=== PATIENT | female | born 1975 | race Caucasian/White ===

== ENCOUNTER 2020-07-31 19:40 | Observation (INO) ==
--- NOTE | 2020-07-31 20:02 | DR.AMS ---
HPI Time Seen Time Seen by Provider: 07/31/20 19:55 PCP Primary Care Physician: CIRO Complaint Cheif Complaint Doctors Comments: No Hx of seizures, no trauma Chief Complaint:: PT IN ED FROM PRIVATE VEHICLE WITH C/O LEFT SIDED WEAKNESS AND AMS WHICH STARTED APPROX 1 HR AGO. WHILE IN ROUTE PT BECAME UNRESPONIVE AND SEIZING. COVID-19 Coronavirus risk:travel/contact w/high risk person: No Has patient experienced Coronavirus symptoms: No Reviewed Nurses Notes Reviewed: Yes Source History Provided: Family Member Mode of Arrival Mode of Arrival: Stretcher Timing Onset of Chief Complaint: 07/31/20 Came On: Suddenly Symptoms: Improving (after seizure) Symptom Onset: Known Onset of Symptoms Start Date: 07/31/20 Onset of Symptoms Start Time: 18:56 Duration Duration: Intermittent How lon Duration: Minutes Quality Quality: Decreased Alertness Severity Severity: Moderate Context Recent: None History Of: None Associated Signs and Symptoms Associated Signs and Symptoms: 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 PMH PMH Past Medical History: Yes Past Medical History: Anxiety and Headaches Past Surgical History: Yes Surgical History: Other Past Surgical History Comment: BREAST IMPLANTS Family History History of Family Medical Conditions: No Social History Type of Tobacco Use: VAPS Does any household member use tobacco: No Alcohol Use: DAILY Do you use any recreational Drugs:: No Lives With: Spouse Lives Where: Home Travel Risk Coronavirus risk:travel/contact w/high risk person: No Has patient experienced Coronavirus symptoms: No Infectious screening In the last 2 months have you had wt loss of >10#?: NO Have you had fever, night sweats or hemotysis?: No Have you traveled outside the country in the last 6 months?: No Isolation: Standard ROS Review of Systems Unable to Obtain Due To: Altered mental status PE Vitals Vital Signs: Temp Pulse Resp BP BP Pulse Ox 07/31/20 22:00 63 15 107/70 96 07/31/20 21:45 61 14 97 07/31/20 21:30 66 15 103/56 98 07/31/20 21:15 63 19 95 07/31/20 21:00 64 20 114/69 95 07/31/20 20:45 64 16 95 07/31/20 20:30 68 20 129/80 97 07/31/20 20:15 82 40 H 98 07/31/20 20:06 74 25 H 97 07/31/20 20:00 10 L 123/78 99 07/31/20 19:44 98.4 F 86 15 144/78 100 01/03/19 14:52 129/86 General Limitations: Altered Mental Status General Appearance: Lethargic Head Head Exam: Normal Inspection, Atraumatic and Normocephalic Head Exam Physical: negative Laceration, Abrasion, Contusion, Hematoma, Raccoon Eyes, Ayala's Sign, Tenderness of Temporal Artery, CSF Rhinorrhea, CSF Otorrhea and Other Eyes Eye exam: Normal Appearance and PERRL Pupils: Regular, Round: Bilateral ENT ENT Exam: Normal Exam and Normal Oropharynx External Ear Exam: Normal External Inspection TM/Canal Exam: Bilateral: Normal Nose Exam: Normal Nose Exam Mouth Exam: Normal Inspection; negative Drooling, Lip Swelling, Tongue Elevation and Tongue Swelling Throat Exam: Normal Inspection Neck Neck Exam: Normal Inspection, Full ROM and Trachea Midline Chest Chest Inspection: Normal Inspection Respiratory Respiratory Exam: Normal Lung Sounds Bilat; negative Respiratory Distress Respiratory Exam: Bilateral: Clear to Auscultation COURSE Treatment Treatment: Patient taken to CT for head scan. Post ictal on return. 2039: awake and talking now. 2129: patient alert and moves all extremities, Possible weakness left leg and arm. Consultation Called: 21:44 Call Returned: 21:44 Consultation Comments: case discussed with DR. Arias admit for possible MRI/ seizure work up. ROR Labs Reviewed Result Diagrams: 07/31/20 20:00 07/31/20 20:00 Laboratory: WBC 10.8 X10^3/uL (3.6-10.0) H 07/31/20 20:00 RBC 4.45 X10^6/uL (3.5-5.4) 07/31/20 20:00 Hgb 14.8 g/dL (12.0-16.0) 07/31/20 20:00 Hct 43.0 % (36.0-47.0) 07/31/20 20:00 MCV 96.6 fL (80.0-100.0) 07/31/20 20:00 MCH 33.2 pg (27.0-34.0) 07/31/20 20:00 MCHC 34.4 g/dL (33.0-35.0) 07/31/20 20:00 RDW 12.9 % (11.6-16.5) 07/31/20 20:00 Plt Count 263 X10^3/uL (150.0-450.0) 07/31/20 20:00 MPV 8.0 fL (7.4-11.0) 07/31/20 20:00 Neut % (Auto) 50.1 % (42.0-75.0) 07/31/20 20:00 Lymph % (Auto) 37.4 % (21.0-51.0) 07/31/20 20:00 [place] % (Auto) 6.8 % (0.0-13.0) 07/31/20 20:00 Eos % (Auto) 5.1 % (0.9-2.9) H 07/31/20 20:00 Baso % (Auto) 0.6 % (0.2-1.0) 07/31/20 20:00 Neut # (Auto) 5.4 x10^3/uL (2.2-4.8) H 07/31/20 20:00 Lymph # (Auto) 4.1 X10^3/uL (1.3-2.9) H 07/31/20 20:00 [place] # (Auto) 0.7 x10^3/uL (0.3-0.8) 07/31/20 20:00 Eos # (Auto) 0.6 x10^3/uL (0.0-0.2) H 07/31/20 20:00 Baso # (Auto) 0.1 X10^3/uL (0.0-0.1) 07/31/20 20:00 Absolute Nucleated RBC 0.0 /100WBC 07/31/20 20:00 Sodium 141 mmol/L (136-145) 07/31/20 20:00 Corrected Sodium TNP 07/31/20 20:00 Potassium 3.4 mmol/L (3.5-5.1) L 07/31/20 20:00 Chloride 103 mmol/L (98-107) 07/31/20 20:00 Carbon Dioxide 26.8 mmol/L (21-32) 07/31/20 20:00 BUN 6 mg/dL (7-18) L 07/31/20 20:00 Creatinine 0.95 mg/dL (0.55-1.02) 07/31/20 20:00 Est GFR (MDRD) Af Amer > 60 (>60) 07/31/20 20:00 Est GFR (MDRD) Non-Af > 60 (>60) 07/31/20 20:00 Glucose 95 mg/dL (65-99) 07/31/20 20:00 POC Glucose (mg/dL) 87 mg/dL (65-99) 07/31/20 20:01 Calcium 9.3 mg/dL (8.5-10.1) 07/31/20 20:00 Corrected Calcium TNP 07/31/20 20:00 Total Bilirubin 0.50 mg/dL (0.2-1.0) 07/31/20 20:00 AST 16 Units/L (15-37) 07/31/20 20:00 ALT 19 Units/L (12-78) 07/31/20 20:00 Alkaline Phosphatase 56 Units/L (46-116) 07/31/20 20:00 Total Protein 7.9 g/dL (6.4-8.2) 07/31/20 20:00 Albumin 4.5 g/dL (3.4-5.0) 07/31/20 20:00 Globulin 3.4 g/dL (2.5-4.5) 07/31/20 20:00 Albumin/Globulin Ratio 1.3 Ratio (1.1-2.1) 07/31/20 20:00 Specimen Type Clean catch urine 07/31/20 21:10 Urine Color Yellow (YELLOW) 07/31/20 21:10 Urine Appearance Clear (CLEAR) 07/31/20 21:10 Urine pH 6.5 (5.0 - 8.0) 07/31/20 21:10 Ur Specific Stewart 1.010 (1.000-1.030) 07/31/20 21:10 Urine Protein Negative (NEGATIVE) 07/31/20 21:10 Urine Glucose (UA) Negative (NEGATIVE) 07/31/20 21:10 Urine Ketones Negative (NEGATIVE) 07/31/20 21:10 Urine Occult Blood 3+ (NEGATIVE) 07/31/20 21:10 Urine Nitrite Negative (NEGATIVE) 07/31/20 21:10 Urine Bilirubin Negative (NEGATIVE) 07/31/20 21:10 Urine Urobilinogen Normal (NORMAL) 07/31/20 21:10 Ur Leukocyte Esterase Negative (NEGATIVE) 07/31/20 21:10 Urine RBC 0-2 /HPF (0-3) 07/31/20 21:10 Urine WBC None seen /HPF (0-5) 07/31/20 21:10 Ur Squamous Epith Cells Negative /HPF (NEGATIVE) 07/31/20 21:10 Urine Bacteria Negative /HPF (NEGATIVE) 07/31/20 21:10 Ur Culture Indicated? No/not indicated 07/31/20 21:10 Urine Opiates Screen Negative (NEG=<300) 07/31/20 21:10 Urine Methadone Screen Negative (NEG=<300) 07/31/20 21:10 Ur Barbiturates Screen Negative (NEG=<200) 07/31/20 21:10 Ur Phencyclidine Scrn Negative (NEG=<25) 07/31/20 21:10 Ur Amphetamines Screen Negative (NEG=<1000) 07/31/20 21:10 U Benzodiazepines Scrn Negative (NEG=<200) 07/31/20 21:10 Urine Cocaine Screen Negative (NEG=<300) 07/31/20 21:10 U Marijuana (THC) Screen Negative (NEG=<50) 07/31/20 21:10 Ethyl Alcohol mg/dL < 3 mg/dL (0-19.9) 07/31/20 20:00 SARS-CoV-2 (PCR) Negative (NEGATIVE) 07/31/20 21:55 XRAY XRAY Interpreted by: Radiologist X-ray Results: CT Head: suzette acute findings EKG Rate: 83 Mcclave: Normal Rhythm: NSR Block: None Hypertrophy: LAE ST: Normal Opioid Opioid Risk Tool Age (Lazaro box if 16-45): Yes History of Preadolescent Sexual Abuse: No Total: 1 Total Score Risk Category: Low Risk Copyright: [employer] predicting aberrant behaviors
--- NOTE | 2020-07-31 20:05 | CT ---
HISTORYLeft-sided weakness unresponsiveSTUDYCT brain without contrastCOMPARISONApril 2019TECHNIQUEMultiple axial images of the brain were obtained from the skull base to the vertex [without] administration of IV contrast.Dose reduction techniques including Automated Exposure Control (AEC) and adjustment of mA and kV were utlized.FINDINGS[No acute intraparenchymal hemorrhage or mass can be identified.] [No extra-axial fluid collections are seen.] [No alteration in the attenuation of the brain parenchyma can be identified to suggest acute or subacute ischemic change.] [The ventricular system is symmetric and nondilated.] [The extracranial structures are grossly unremarkable.]IMPRESSION[No acute intracranial process can be identified.]Electronically signed by: TRAN QUAN (Jul 31, 2020 20:03:31)
[2020-07-31 20:18] LABS: BASOPHILS # (AUTO) 0.1 X10^3/uL (0.0-0.1); BASOPHILS % (AUTO) 0.6 % (0.2-1.0); EOSINOPHILS # (AUTO) 0.6 x10^3/uL (0.0-0.2); EOSINOPHILS % (AUTO) 5.1 % (0.9-2.9); HEMOGLOBIN 14.8 g/dL (12.0-16.0); LYMPHOCYTES # (AUTO) 4.1 X10^3/uL (1.3-2.9); LYMPHOCYTES % (AUTO) 37.4 % (21.0-51.0); MEAN CORPUSCULAR HEMOGLOBIN 33.2 pg (27.0-34.0); MEAN CORPUSCULAR HGB CONC 34.4 g/dL (33.0-35.0); MEAN CORPUSCULAR VOLUME 96.6 fL (80.0-100.0); MONOCYTES # (AUTO) 0.7 x10^3/uL (0.3-0.8); MONOCYTES % (AUTO) 6.8 % (0.0-13.0); NEUTROPHILS # (AUTO) 5.4 x10^3/uL (2.2-4.8); NEUTROPHILS % (AUTO) 50.1 % (42.0-75.0); PLATELET COUNT 263 X10^3/uL (150.0-450.0); RED BLOOD COUNT 4.45 X10^6/uL (3.5-5.4); RED CELL DISTRIBUTION WIDTH 12.9 % (11.6-16.5); WHITE BLOOD COUNT 10.8 X10^3/uL (3.6-10.0)
[2020-07-31 20:25] LABS: ALANINE AMINOTRANSFERASE 19 Units/L (12-78); ALBUMIN 4.5 g/dL (3.4-5.0); ALKALINE PHOSPHATASE 56 Units/L (46-116); ASPARTATE AMINO TRANSFERASE 16 Units/L (15-37); BLOOD UREA NITROGEN 6 mg/dL (7-18); CALCIUM 9.3 mg/dL (8.5-10.1); CARBON DIOXIDE 26.8 mmol/L (21-32); CHLORIDE 103 mmol/L (98-107); CREATININE 0.95 mg/dL (0.55-1.02); SODIUM 141 mmol/L (136-145); TOTAL PROTEIN 7.9 g/dL (6.4-8.2); eGFR NON BLACK RACES > 60 (>60)
[2020-07-31 21:21] LABS: BILIRUBIN,URINE NEGATIVE (NEGATIVE); BLOOD/HEMOGLOBIN,URINE 3+ (NEGATIVE); GLUCOSE, URINE NEGATIVE (NEGATIVE); KETONES,URINE NEGATIVE (NEGATIVE); LEUKOCYTE ESTERASE ,URINE NEGATIVE (NEGATIVE); NITRITES,URINE NEGATIVE (NEGATIVE); PH,URINE 6.5 (5.0 - 8.0); PROTEIN,URINE NEGATIVE (NEGATIVE); UROBILINOGEN,URINE NORMAL (NORMAL)
[2020-07-31 21:32] LABS: APPEARANCE,URINE CLEAR (CLEAR); COLOR,URINE YELLOW (YELLOW); RBC,URINE 0-2 /HPF (0-3)
[2020-07-31 21:33] LABS: BACTERIA,URINE NEGATIVE /HPF (NEGATIVE); SQUAMOUS EPITHELIAL CELL,UR NEGATIVE /HPF (NEGATIVE)
[2020-07-31] MEDS ORDERED: ZOFRAN INJ 4 MG VIAL IVP ONE (22:18)
[2020-07-31] MEDS ORDERED: NS 1000 ML 1,000 ML ONE (22:28)
[2020-07-31] MEDS ORDERED: ZOFRAN INJ 4 MG VIAL ONE (22:28)
[2020-07-31] MEDS ORDERED: MOTRIN TAB 800 MG PO ONE (22:30)
[2020-07-31] MEDS: MOTRIN TAB 800 MG PO PRN (22:44)
[2020-07-31] MEDS: NS 1000 ML 1,000 ML IV SCH (22:45)
[2020-08-01 02:22] VITALS: BMI 27.8
[2020-08-01] MEDS ORDERED: POTASSIUM CHLORIDE LIQ 20 MEQ UDC PO PRN (03:26)
[2020-08-01] MEDS ORDERED: MICRO K EXTEN CAP 10 MEQ PO PRN (03:26)
[2020-08-01] MEDS ORDERED: K-RIDER 10 MEQ/NS 100 ML 10 MEQ/100 ML BAG IV PRN (03:26)
[2020-08-01] MEDS ORDERED: POTASSIUM CHL 40 MEQ/NS 0.45% 500 ML IV PRN (03:26)
[2020-08-01] MEDS ORDERED: KLOR-CON PO PRN (03:26)
[2020-08-01] MEDS ORDERED: POTASSIUM CHL 60 MEQ/NS 0.45% 500 ML IV PRN (03:26)
[2020-08-01] MEDS ORDERED: K-DUR TAB 20 MEQ PO PRN (03:26)
[2020-08-01] MEDS ORDERED: MAGNESIUM SULFATE 1 GRAM/100 mL PREMIX 1 GM/100 ML BAG IV PRN (05:00)
[2020-08-01 06:05] LABS: BASOPHILS # (AUTO) 0.1 X10^3/uL (0.0-0.1); BASOPHILS % (AUTO) 0.6 % (0.2-1.0); EOSINOPHILS # (AUTO) 0.4 x10^3/uL (0.0-0.2); HEMATOCRIT 40.4 % (36.0-47.0); LYMPHOCYTES # (AUTO) 3.6 X10^3/uL (1.3-2.9); LYMPHOCYTES % (AUTO) 40.4 % (21.0-51.0); MEAN CORPUSCULAR HEMOGLOBIN 33.3 pg (27.0-34.0); MEAN CORPUSCULAR HGB CONC 34.6 g/dL (33.0-35.0); MEAN CORPUSCULAR VOLUME 96.2 fL (80.0-100.0); MEAN PLATELET VOLUME 8.3 fL (7.4-11.0); MONOCYTES # (AUTO) 0.7 x10^3/uL (0.3-0.8); MONOCYTES % (AUTO) 7.5 % (0.0-13.0); NEUTROPHILS # (AUTO) 4.1 x10^3/uL (2.2-4.8); NEUTROPHILS % (AUTO) 46.5 % (42.0-75.0); PLATELET COUNT 252 X10^3/uL (150.0-450.0); RED CELL DISTRIBUTION WIDTH 12.8 % (11.6-16.5); WHITE BLOOD COUNT 8.8 X10^3/uL (3.6-10.0)
[2020-08-01 06:26] LABS: ALANINE AMINOTRANSFERASE 20 Units/L (12-78); ALBUMIN 3.6 g/dL (3.4-5.0); ALKALINE PHOSPHATASE 45 Units/L (46-116); ASPARTATE AMINO TRANSFERASE 14 Units/L (15-37); BLOOD UREA NITROGEN 7 mg/dL (7-18); CALCIUM 8.5 mg/dL (8.5-10.1); CARBON DIOXIDE 29.1 mmol/L (21-32); CHLORIDE 105 mmol/L (98-107); CREATININE 0.93 mg/dL (0.55-1.02); SODIUM 142 mmol/L (136-145); TOTAL PROTEIN 6.5 g/dL (6.4-8.2); eGFR NON BLACK RACES > 60 (>60)
[2020-08-01] MEDS: ZOFRAN INJ 4 MG VIAL IVP PRN ×3 (08:07→22:52)
[2020-08-01] MEDS ORDERED: SAW PALMETTO 500 MG PO SCH (09:00)
[2020-08-01] MEDS: ZOLOFT PO SCH ×2 (09:51→11:09)
[2020-08-01] MEDS: MOTRIN TAB 800 MG PO PRN (10:11)
[2020-08-01] MEDS: NS 1000 ML 1,000 ML IV SCH ×2 (11:20→21:14)
[2020-08-01] MEDS: KEPPRA TAB 500 MG PO SCH ×2 (11:20→21:14)
--- NOTE | 2020-08-01 11:59 | DR.H&P ---
H&P - History & Physical for Day of: H&P Date: 07/31/20 - Chief Complaint Chief Complaint: LEFT SIDED WEAKNESS, AMS, SEIZURE ACTIVITY, SEVERE HEADACHE, NAUSEA - History of Present Illness History of Present Illness: IS A 44 YEAR OLD PATIENT OF OURS WHO PRESENTED TO THE ER WITH REPORTS OF SEIZURE ACTIVITY. PATIENTS SPOUSE REPORTED THAT PATIENT STARTED HAVING LEFT SIDED WEAKNESS AND ALTERED MENTAL STATUS ABOUT AN HOUR PRIOR TO ARRIVAL. HE REPORTS THAT PATIENT THEN BECAME UNRESPONSIVE AND STARTED HAVING SEIZURE LIKE ACTIVITY. SEIZURE LASTED APPROXIMATELY TWO MINUTES. ON ARRIVAL TO THE ER, PATIENT IS DROWSY, BUT IS ABLE TO ANSWER QUESTIONS. SHE REPORTS HAVING SYMPTOMS OF DIZZINESS, VISUAL DISTURBANCES, BLURRED VISION, SEVERE HEADACHE, AND NAUSEA EARLIER IN THE DAY. SHE DENIES A HISTORY OF SEIZURES. ON ARRIVAL, VITALS WERE 98.4-86-15-100%-144/78. LABS WERE OBTAINED. ABNORMAL LAB VALUES INCLUDE THE FOLLOWING: WBC 10.8, POTASSIUM 3.4, BUN 6. URINALYSIS IS UNREMARKABLE. BRAIN CT WAS OBTAINED AND REVEALED: No acute intracranial process can be identified. EKG REVEALED: SINUS RHYTHM WITH HR 83. SHE WAS GIVEN ZOFRAN 4MG IV X 1 DOSE IN THE ER DUE TO NAUSEA. SHE WAS ADMITTED FOR FURTHER EVALUATION AND TREATMENT. SHE WAS STARTED ON NS AT 80 ML/HR, ZOFRAN 4MG IV Q6H PRN, FIORICET 1-2TAB PO Q6H PRN, KEPPRA 500MG PO BID, THE POTASSIUM AND MAGNESIUM PROTOCOLS, AND HER HOME MEDICATIONS OF ZOLOFT WAS RESUMED. WE WILL OBTAIN A BRAIN MRI TO RULE OUT ANEURYSM OR OTHER ABNORMALITIES. OTHERWISE, WE WILL FOLLOW UP WITH AM LABS AND CONTINUE TO MONITOR. - Past Medical History Past Medical History: Anxiety, Headaches - Past Surgical History Surgical History: Other - Family History Family Medical History: ND - Social History Type of Tobacco Use: VAPS Does any household member use tobacco: No Alcohol Use: Occasionally Drug Use: None - Medications Home Medications: Penicillins Allergy (Verified 01/03/19 12:16) CONTINUE taking the following medications saw palmetto 500 mg PO BID 07/31/20 [History] sertraline 50 mg PO DAILY 07/31/20 [History] - Review of Systems Constitutional: Weakness Eyes: See HPI, Vision Change ENT: No Symptoms Reported Respiratory: No Symptoms Reported Cardiovascular: Light Headedness Gastrointestinal: Nausea Genitourinary: No Symptoms Reported Musculoskeletal: No Symptoms Reported Skin: No Symptoms Reported Neurological: See HPI, Weakness, Seizures, Other (SEVERE HEADACHE, LOC ) - Physical Exam Vital Signs: Temperature 97.7 F Pulse Rate [Right Radial] 64 Pulse Rate 56 Respiratory Rate 20 Blood Pressure [Left Arm] 105/62 Blood Pressure [Right Arm] 130/82 Blood Pressure 117/76 O2 Sat by Pulse Oximetry 99 Oriented: Normal Eyes: Blurred Vision Ear: Normal Nose: Normal Throat: Normal Respiratory: Clear Throughout Cardiovascular: Normal : Normal Auscultation: Bowel Sounds: Normal Palpation: Normal Tenderness: Normal Skin: Normal Musculoskeletal: Normal Psychiatric: Normal Mood Description: Calm Affect: Normal Speech Pattern: Clear - Assessment/Plan (1) Seizure Status: Acute Plan: ADMIT, OBTAIN BRAIN MRI, NS AT 80 ML/HR, ZOFRAN 4MG IV Q6H PRN, FIORICET 1-2TAB PO Q6H PRN, KEPPRA 500MG PO BID, THE POTASSIUM AND MAGNESIUM PROTOCOLS, AND HER HOME MEDICATIONS OF ZOLOFT WAS RESUMED (2) Headache Qualifiers: Headache type: unspecified Headache chronicity pattern: acute headache Intractability: intractable Qualified Code(s): R51.9 - Headache, unspecified Status: Acute (3) Blurred vision Status: Acute (4) Nausea Status: Acute - Allergies Allergies/Adverse Reactions: Allergies Allergy/AdvReac Type Severity Reaction Status Date / Time Penicillins Allergy Verified 01/03/19 12:16
[2020-08-01] MEDS: FIORICET TAB PO PRN ×2 (17:24→22:51)
[2020-08-02] MEDS: NS 1000 ML 1,000 ML IV SCH ×2 (01:09→15:15)
[2020-08-02 06:38] LABS: BASOPHILS # (AUTO) 0.1 X10^3/uL (0.0-0.1); BASOPHILS % (AUTO) 0.7 % (0.2-1.0); EOSINOPHILS # (AUTO) 0.4 x10^3/uL (0.0-0.2); EOSINOPHILS % (AUTO) 5.1 % (0.9-2.9); HEMATOCRIT 37.8 % (36.0-47.0); HEMOGLOBIN 13.1 g/dL (12.0-16.0); LYMPHOCYTES % (AUTO) 40.7 % (21.0-51.0); MEAN CORPUSCULAR HEMOGLOBIN 33.6 pg (27.0-34.0); MEAN CORPUSCULAR HGB CONC 34.5 g/dL (33.0-35.0); MEAN CORPUSCULAR VOLUME 97.3 fL (80.0-100.0); MEAN PLATELET VOLUME 8.5 fL (7.4-11.0); MONOCYTES # (AUTO) 0.5 x10^3/uL (0.3-0.8); MONOCYTES % (AUTO) 7.1 % (0.0-13.0); NEUTROPHILS # (AUTO) 3.4 x10^3/uL (2.2-4.8); NEUTROPHILS % (AUTO) 46.4 % (42.0-75.0); PLATELET COUNT 209 X10^3/uL (150.0-450.0); RED BLOOD COUNT 3.88 X10^6/uL (3.5-5.4); RED CELL DISTRIBUTION WIDTH 12.7 % (11.6-16.5); WHITE BLOOD COUNT 7.3 X10^3/uL (3.6-10.0)
[2020-08-02 07:08] LABS: ALANINE AMINOTRANSFERASE 16 Units/L (12-78); ALBUMIN 3.1 g/dL (3.4-5.0); ALKALINE PHOSPHATASE 37 Units/L (46-116); ASPARTATE AMINO TRANSFERASE 11 Units/L (15-37); BLOOD UREA NITROGEN 6 mg/dL (7-18); CALCIUM 8.1 mg/dL (8.5-10.1); CARBON DIOXIDE 25.8 mmol/L (21-32); CHLORIDE 109 mmol/L (98-107); COR CA(FOR HYPOALB) 8.8 mg/dL (8.5-10.1); CREATININE 0.93 mg/dL (0.55-1.02); SODIUM 143 mmol/L (136-145); TOTAL PROTEIN 5.7 g/dL (6.4-8.2); eGFR NON BLACK RACES > 60 (>60)
[2020-08-02] MEDS: FIORICET TAB PO PRN (07:16)
[2020-08-02] MEDS: ZOFRAN INJ 4 MG VIAL IVP PRN (07:17)
[2020-08-02] MEDS: KEPPRA TAB 500 MG PO SCH (08:47)
[2020-08-02] MEDS ORDERED: VALIUM PO PRN ×2 (10:12→10:14)
[2020-08-02 13:56] VITALS: BP 108/71
--- NOTE | 2020-08-02 14:03 | MRI ---
HISTORYSEVERE HEADACHE, BLURRED VISION, left-sided weakness and altered mental status for 2 daysSTUDYMRI brain without and with IV contrastCOMPARISONCT 07/31/2020TECHNIQUEMultiplanar multi-sequence MRI of the brain was obtained prior to and following administration of IV contrast. 14 cc MultiHance IV contrast.FINDINGSCerebellar tonsils are low lying without evidence of a Chiari 1 malformation. Pituitary gland is normal in size. [The cerebral ventricles are normal in size.]No areas of restricted diffusion. No abnormal T2 signal is seen in the brain. [No evidence of intracranial hemorrhage.]Paranasal sinuses and mastoid air cells appear clear.There is no abnormal enhancement of the brain parenchyma or meninges.IMPRESSIONCerebellar tonsils are low lying with crowding of CSF spaces at the foramen magnum. No Chiari 1 malformation is seen, though.Electronically signed by: Hema Escobar (Aug 02, 2020 14:01:48)
[2020-08-02] MEDS ORDERED: ZOLOFT PO SCH (21:00)
== END 2020-08-02 14:40 | disposition home or self-care (01) ==
LOC: MED/SURG 19:43 → ER 19:43 → MED/SURG 23:24
PROVIDERS: ADMIT Internal Medicine; ATTEND Internal Medicine